=== PATIENT | male | born 1950 | race Asian ===

== ENCOUNTER 2021-10-25 09:37 | Emergency (ER) | payer MEDICAID ==
[~2021-10-25] VITALS: Ht 154.9 cm; Wt 63.5 kg
[2021-10-25 09:55] VITALS: BP_SYST 72
[2021-10-25] MEDS ORDERED: NACL 0.9% 1,000 ML IV ONE (10:15)
[2021-10-25] MEDS ORDERED: MORPHINE 4 MG INJ. 4 MG/ML VIAL IVP ONE (10:15)
[2021-10-25 11:05] LABS: BASOPHILS % (AUTO) 0.3 % (0.0-2.0); EOSINOPHILS # (AUTO) 0.4 K/uL (0.0-0.4); EOSINOPHILS % (AUTO) 2.8 % (0.0-4.0); HEMOGLOBIN 12.6 g/dL (14.0-18.0); LYMPHOCYTES # (AUTO) 2.1 K/uL (1.0-5.5); LYMPHOCYTES % (AUTO) 13.7 % (20.5-51.5); MEAN CORPUSCULAR HEMOGLOBIN 30 pg (27-31); MEAN CORPUSCULAR HGB CONC 33 % (32-36); MEAN CORPUSCULAR VOLUME 89 fL (79.0-98.0); MONOCYTES % (AUTO) 6.8 % (1.7-9.3); NEUTROPHILS # (AUTO) 11.8 K/uL (1.8-7.7); NEUTROPHILS % (AUTO) 76.4 % (40.0-70.0); PLATELET COUNT (AUTO) 315 K/uL (130-430); RED BLOOD CELL COUNT(AUTO) 4.28 MIL/uL (4.2-6.2); RED CELL DISTRIBUTION WIDTH 13.9 % (9.0-15.0); WHITE BLOOD COUNT (AUTO) 15.5 K/uL (4.8-10.8)
[2021-10-25 11:13] LABS: ANION GAP 8 (5-15); CALCIUM 8.1 mg/dL (8.4-11.0); CHLORIDE 100 mmol/L (98-107); CREATININE 1.86 mg/dL (0.55-1.30); GFR AFRICAN AMERICAN 46 mL/min (>90); GLUCOSE 122 mg/dL (70-99); POTASSIUM 4.9 mmol/L (3.5-5.1); SODIUM SERUM 128 mmol/L (136-145); UREA NITROGEN, BLOOD 37 mg/dL (8-21)
[2021-10-25 11:21] LABS: PROTHROMBIN TIME 10.4 SECS (9.5-12.5)
[2021-10-25 11:22] LABS: ALANINE AMINOTRANSFERASE 33 U/L (12-78); ALBUMIN 2.7 g/dL (3.4-4.8); ASPARTATE AMINOTRANSFERASE 45 U/L (10-37); TOTAL BILIRUBIN 0.5 mg/dL (0.0-1.0)
[2021-10-25 11:33] LABS: C-REACTIVE PROTEIN QUANT 3.5 mg/dL (0-0.5)
[2021-10-25 11:56] LABS: BILIRUBIN,URINE NEGATIVE (NEGATIVE); BLOOD, URINE 1+ (NEGATIVE); CLARITY/URINE CLEAR (CLEAR); COLOR,URINE YELLOW (YELLOW); GLUCOSE,URINE 3+ (NEGATIVE); KETONES,URINE NEGATIVE (NEGATIVE); LEUKOCYTE ESTERASE ,URINE NEGATIVE (NEGATIVE); NITRITE, URINE NEGATIVE (NEGATIVE); PROTEIN URINE NEGATIVE (NEGATIVE); UROBILINOGEN,URINE 0.2 (0.2-1.0)
[2021-10-25] MEDS ORDERED: IBUP-1969 PO (12:02)
[2021-10-25] MEDS ORDERED: TRAM50TA2 PO (12:02)
[2021-10-25 12:21] LABS: WBC,URINE 0-3 /HPF (0-3)
[2021-10-25 12:22] LABS: BACTERIA,URINE None Seen /HPF (None Seen)
[2021-10-25 12:37] VITALS: BP_SYST 93
== END 2021-10-25 12:36 | disposition home or self-care (01) ==
LOC: SED 09:37
DX: T82.847A Pain due to cardiac prosthetic devices, implants and grafts, initial encounter (principal); R10.32 Left lower quadrant pain
CPT/HCPCS: 36415; 71045; 74176; 76376; 80053; 81000; 83605; 84484; 85025; 85610; 85730; 86140; 93005; 96361; 96374; 99285; J2270; J7030